=== PATIENT | female | born 1995 | race Caucasian/White ===

== ENCOUNTER 2020-11-06 16:11 | Emergency (ER) | payer OTHER ==
[~2020-11-06 16:11] MED LIST: BACTRIM DS TAB1 EACH PO; PYRIDIUM200 MG PO
== END 2020-11-06 19:36 | disposition home or self-care (01) ==
LOC: FER 16:11
DX: J35.8 Other chronic diseases of tonsils and adenoids (principal); F17.200 Nicotine dependence, unspecified, uncomplicated
CPT/HCPCS: 87880; 99283